=== PATIENT | male | born 1980 | race Caucasian/White ===

== ENCOUNTER 2024-04-13 19:53 | Emergency (ER) | payer MEDICAID, SELFPAY ==
[2024-04-13 19:54] VITALS: BP 141/117; PULSE 121; RESP 30; TEMP 36.8; O2SAT 97; BMI 25.3
[2024-04-13 20:51] VITALS: PULSE 84; RESP 18; O2SAT 95
[2024-04-13] MEDS: predniSONE 20 MG Tablet 40 MG PO (21:31)
[2024-04-13 22:00] VITALS: O2SAT 94
[2024-04-13 22:28] VITALS: BP 174/97; PULSE 88; RESP 18; TEMP 36.1; O2SAT 94
== END 2024-04-13 22:28 | disposition home or self-care (01) ==
PROVIDERS: Emergency Provider Emergency Medicine; Visit Provider Emergency Medicine
DX: J45.901 Unspecified asthma with (acute) exacerbation (principal); F17.210 Nicotine dependence, cigarettes, uncomplicated
CPT/HCPCS: 71046; 99282

== ENCOUNTER 2024-06-11 18:43 | Inpatient (IN) | payer MEDICAID, SELFPAY ==
[2024-06-11] VITALS (18 sets, daily range): BP systolic 147–198; BP diastolic 71–105; PULSE 95–139; RESP 13–22; TEMP 36.4–37.2; O2SAT 90–98; BMI 25.6
--- NOTE | 2024-06-11 18:58 | ED.VIS.DYS ---
HPI History of Present Illness Chief Complaint: Shortness of Breath Narrative Narrative: 44-year-old male past medical history of asthma, smoker of cigarettes, presents after just being discharged from the hospital today with increasing shortness of breath. He relates history that he was seen yesterday evening and admitted overnight for respiratory distress. He went home today, and when he got home he states he started having problems breathing. He used an albuterol MDI and tried the nebulizer but still had a lot of difficulty breathing. He states he does not smoke any cigarettes when he got home. Additionally, he states that they told him that he could go home this morning, but then may have suggested that he stay for more IV steroids and treatments. He states that he elected to go home, but since he had such difficulty at home, he is willing to stay if he gets readmitted. No new symptoms. [facility] Medical History Asthma Home Medications ?Medication ?Instructions ?Recorded ?Last Taken ?Type albuterol sulfate 90 mcg/actuation 1 puff inhalation Q4H PRN PRN 10/29/13 Unknown History aerosol inhaler (Ventolin HFA) Shortness Of Breath albuterol sulfate 90 mcg/actuation 1 - 2 puff inhalation Q4H PRN PRN 04/13/24 Unknown Rx aerosol inhaler (Ventolin HFA) Wheezing ##1 prednisone 20 mg tablet 40 mg (2 x 20 mg) PO DAILY 5 days 04/13/24 Unknown Rx #10 tabs ipratropium 0.5 mg-albuterol 3 mg 3 ml inhalation 06/11/24 Unknown History (2.5 mg base)/3 mL nebulization soln Allergy/AdvReac Type Severity Reaction Status Date / Time No Known Allergies Allergy Verified 06/11/24 18:43 Social History Smoking Status: Former smoker ROS ROS ED ROS Narrative Review of systems positive for occasional cough, increased difficulty breathing and wheezing. No fevers or chills. EXAM Physical Exam Narrative Exam Narrative: Afebrile. Vital signs noted. Nontoxic-appearing. Pulse ox 90% on room air upon arrival. Placed on 2 L nasal cannula oxygen. Cardiovascular examination reveals a tachycardia. There is wheezing and decreased air movement throughout the bilateral lung yost. Abdomen soft and nontender. Positive bowel sounds. Neurological examination nonfocal and nonlateralizing. Const Vital Signs: 06/11/24 18:43 06/11/24 19:04 06/11/24 19:06 Temperature 97.5 F L Temperature Source Oral Pulse Rate 139 H 121 H Respiratory Rate 22 H 22 H Respiratory Pattern Tachypnea Blood Pressure 198/102 H Blood Pressure Mean 134 Pulse Ox 90 92 Oxygen Delivery Method Room Air Nasal Cannula Oxygen Flow Rate (L/min) 2 06/11/24 19:10 06/11/24 19:10 06/11/24 19:28 Temperature 98.9 F Temperature Source Oral Pulse Rate 122 H 121 H Respiratory Rate 22 H 20 H Respiratory Pattern Blood Pressure 187/85 H Blood Pressure Mean 119 Pulse Ox 92 98 Oxygen Delivery Method Nasal Cannula Room Air Oxygen Flow Rate (L/min) 2 MDM MDM MDM Narrative Medical decision making narrative: I reviewed his prior visit. I also reviewed the discharge note from today, but it was under a different medical record number. He has been offered to stay an additional day, but it was noted that he was more adamant in being discharged. Patient had a CTA performed as well as laboratory work and chest x-ray. I do not feel that these need repeated because it has been within 24 hours that they were initially performed. He will be given a DuoNeb aerosolized treatment as well as methylprednisolone 125 mg intravenously. Smoking cessation was discussed. As he has bounced back, I will discuss patient with the hospitalist for admission. Patient discussed with Dr. Byers. Disposition is admit to the PCU in stable condition. History & Record Review Discussion w/independent historian: Patient Additional record(s) reviewed:: Prior inpatient record and Prior ED visit Management Discussion w/another healthcare provider: Hospitalist Discharge Plan Dx/Rx/DC Orders Clinical Impression: Asthma exacerbation, Wheezing, Dyspnea Disposition Disposition: Acute Care Hospital [facility]
[2024-06-11] MEDS: Ipratropium/Albuterol Sulfate 3 ML AMPUL.NEB INHALATION ×2 (19:04→23:52)
[2024-06-11] MEDS: MethylPREDNISolone 125 MG/2 ML Vial IV (19:06)
--- NOTE | 2024-06-11 19:32 | HP.PCM.HOS_ITS ---
HPI - General General Date of Admission: 06/11/24 Date of Service: 06/11/24 Chief Complaint: Shortness of breath with wheezing HPI Narrative TERRI LEGGETT, is a 44 M who presented to [facility] ED on 06/11/2024 with worsening shortness of breath with wheezing. Patient was discharged earlier in the afternoon, see discharge summary for further details. Was initially admitted for asthma exacerbation secondary to rhinovirus on 06/09. Patient states he went home and tried using his inhalers at home but they were not effective. States he became more short of breath and wheezy soon after arriving back at home. States he will be willing to stay longer in the hospital this time to ensure resolution of his symptoms. Satting well on room air in the ED but on auscultation remains diffusely wheezy. Does have good air movement throughout bilaterally. No other new concerns at this time. [facility] Medical History Asthma Home Medications ?Medication ?Instructions ?Recorded ?Last Taken ?Type albuterol sulfate 90 mcg/actuation 1 puff inhalation Q4H PRN PRN 10/29/13 U nknown History aerosol inhaler (Ventolin HFA) Shortness Of Breath albuterol sulfate 90 mcg/actuation 1 - 2 puff inhalation Q4H PRN PRN 04/13/24 Unknown Rx aerosol inhaler (Ventolin HFA) Wheezing ##1 prednisone 20 mg tablet 40 mg (2 x 20 mg) PO DAILY 5 days 04/13/24 Unknown Rx #10 tabs ipratropium 0.5 mg-albuterol 3 mg 3 ml inhalation 06/11/24 Unknown History (2.5 mg base)/3 mL nebulization soln Allergy/AdvReac Type Severity Reaction Status Date / Time No Known Allergies Allergy Verified 06/11/24 18:43 Social History Smoking Status: Former smoker ROS Constitutional Constitutional: Denies chills, fatigue, fever(s) or weakness Cardiovascular Cardiovascular: Denies chest pain Respiratory/Chest Respiratory/Chest: Reports shortness of breath at rest, shortness of breath with exertion and wheezing; Denies cough or productive cough Gastrointestinal Gastrointestinal: Reports abdominal pain Vital Signs Vital Signs Vital Signs: 06/11/24 18:43 06/11/24 19:04 06/11/24 19:06 Temperature 97.5 F L Temperature Source Oral Pulse Rate 139 H 121 H Respiratory Rate 22 H 22 H Respiratory Pattern Tachypnea Blood Pressure 198/102 H Blood Pressure Mean 134 Pulse Ox 90 92 Oxygen Delivery Method Room Air Nasal Cannula Oxygen Flow Rate (L/min) 2 06/11/24 19:10 06/11/24 19:10 06/11/24 19:28 Temperature 98.9 F Temperature Source Oral Pulse Rate 122 H 121 H Respiratory Rate 22 H 20 H Respiratory Pattern Blood Pressure 187/85 H Blood Pressure Mean 119 Pulse Ox 92 98 Oxygen Delivery Method Nasal Cannula Room Air Oxygen Flow Rate (L/min) 2 Weight Weight: 85.729 kg Body Mass Index (BMI) 25.6 Physical Exam Const alert, oriented x3 and no apparent distress Constitutional Narrative: Middle-age male, mildly fatigued and unkempt appearing, otherwise sitting up comfortably in bed, answering questions appropriately, in no acute distress. General Appearance: cooperative and comfortable HEENT normocephalic, head/scalp atraumatic, hearing grossly normal bilaterally and nasal mucous membranes and turbinates normal Eyes PERRL, EOMs intact bilaterally and conjunctivae normal Neck full ROM Chest inspection of chest normal Resp normal respiratory effort and no use of accessory muscles Resp Narrative: Breathing comfortably on room air at rest, no increased work of breathing noted. Mild to moderate diffuse wheezing noted bilaterally but otherwise good air movement throughout. No crackles noted. Cardio no murmurs and peripheral pulses 2+ throughout Cardio Narrative: Tachycardic, regular rhythm. GI normal to inspection, nondistended, normoactive bowel sounds, soft to palpation, non-tender and non-distended Back/Spine normal ROM Extremity normal to inspection, full ROM and no pedal edema Skin no rashes or lesions noted Psych mental status grossly normal Assessment & Plan Assessment/Plan (1) Asthma exacerbation: (2) Rhinovirus infection: PLAN: Plan Patient is a 44-year-old male who presented [facility] ED on 06/11/2024 with shortness of breath. 1. Asthma exacerbation secondary to rhinovirus infection ? Admit under inpatient status to PCU. 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 Found to be rhinovirus positive. Had good improvement with IV steroids and scheduled DuoNebs and was weaned off supplemental oxygen on 06/11. Patient requested discharge home on afternoon of 06/11 but had worsening symptoms shortly after arriving back home and came back in the evening. Not hypoxic but with mild to moderate diffuse wheezing noted. Will treat with IV steroids and scheduled DuoNebs for now. 2. Tobacco use disorder ? Smokes 1 pack of cigarettes per day. Discussed cessation. Denied need for nicotine replacement therapy while inpatient. DVT prophylaxis: Lovenox CODE STATUS: Full code, verified Expected disposition: Home, TBD Total clinical time spent by myself addressing the patient's medical issues, re viewing all the data, and collaborating with patient's care team: 55 minutes. Charges/Coding Visit Charges Inpatient E&M: 09132 Init Hosp L2
[2024-06-12] VITALS (12 sets, daily range): BP systolic 153–163; BP diastolic 79–89; PULSE 80–107; RESP 16–18; TEMP 35.7–36.8; O2SAT 92–98
[2024-06-12] MEDS: 0.9% Saline Lock 10 ML Syringe IV ×2 (06:38→21:13)
[2024-06-12] MEDS: Ipratropium/Albuterol Sulfate 3 ML AMPUL.NEB INHALATION ×3 (07:08→14:40)
[2024-06-12 07:16] LABS: Hematocrit 43.8 % (40-54); Hemoglobin 14.4 g/dL (13.0-16.5); Mean Corp Hgb Conc 32.9 g/dL (32-36); Mean Corpuscular Hgb 28.7 pg (27.0-32.0); Mean Corpuscular Volume 87.3 fL (80-94); Mean Platelet Vol. 9.5 fl (6.2-12.0); Platelet Count 261 K/mm3 (150-450); RBC Distribution Width CV 12.9 % (11.6-14.6); RBC Distribution Width SD 40.9 fl (35.1-43.9); Red Blood Count 5.02 M/mm3 (4.6-6.2); White Blood Count 16.8 K/mm3 (4.4-11.0)
[2024-06-12 07:45] LABS: Anion Gap 6 (5-15); BUN 15 mg/dL (7-18); BUN/Creat Ratio 17.6 RATIO (10-20); Chloride 108 mmol/L (98-107); Creatinine, Serum 0.85 mg/dL (0.70-1.30); EST Glomerular Filtration Rate 105 mL/min (>60); Est Glom Filt Rate - Afr Amer 126 mL/min (>60); Estimated Creatinine Clearance 124.26 ml/min; Glucose 131 mg/dL (74-106); Potassium 4.1 mmol/L (3.5-5.1); Sodium Level 140 mmol/L (136-145)
--- NOTE | 2024-06-12 07:58 | NURSING ---
during admission assessment, pt. refused to remove jeans and shoes for accurate weight and skin assessment despite this nurse having explained the importance of this. Pt. was provided with hospital pants to wear, but pt. refused. When i tried to reassess these later on in the shift, pt. still refused. Charge nurse made aware and both assessments were completed to as much as possible given pt.'s refusals to cooperate.
--- NOTE | 2024-06-12 08:10 | PCM.PN.HOSP ---
Reason for Visit Reason for Visit: Diagnoses Other viral infections of unspecified site (06/11/24) Unspecified asthma with (acute) exacerbation (06/11/24) Subjective Subjective Breathing improving with nebs and IV steroids, thinks that his respiratory status got worse when he got home because he is sometimes allergic to cats and there was cat smell in the house prompting him to return to the ED but that prior to getting home his respiratory status was stable Objective Data Objective Data Vital Signs: Vital Signs Temp Pulse Resp BP Pulse Ox O2 Del Method O2 Flow Rate 96.2 F L 81 18 160/86 H 98 Nasal Cannula 2 06/12/24 06:30 06/12/24 06:30 06/12/24 06:30 06/12/24 06:30 06/12/24 06:30 06/12/24 06:30 06/12/24 06:30 Oxygen Flow Rate (L/min) 2 Oxygen Delivery Method Nasal Cannula Weight: 85.729 kg Body Mass Index (BMI) 25.6 Intake & Output: Intake and Output for Last 24 Hours 06/10/24 06/11/24 06/12/24 23:59 23:59 23:59 Intake Total 600 / 600 Balance 600 / 600 Lab / Micro Data 06/12/24 06:38 06/12/24 06:38 Labs: Laboratory Results - last 24 hr 06/12/24 06:38: WBC 16.8 H, RBC 5.02, Hgb 14.4, Hct 43.8, MCV 87.3, MCH 28.7, MCHC 32.9, RDW Std Deviation 40.9, RDW Coeff of Kenan 12.9, Plt Count 261, MPV 9.5, Sodium 140, Potassium 4.1, Chloride 108 H, Carbon Dioxide 26.0, Anion Gap 6, BUN 15, Creatinine 0.85, Estim Creat Clear Calc 124.26, Est GFR (MDRD) Af Amer 126, Est GFR (MDRD) Non-Af 105, BUN/Creatinine Ratio 17.6, Glucose 131 H, Calcium 9.0 Physical Exam Narrative General: Alert, oriented, no apparent distress HEENT: Atraumatic, normocephalic Eyes: Anicteric, normal conjunctiva, extraocular movements grossly intact Neck: Supple Respiratory: Scattered wheezes, normal respiratory effort Cardiovascular: Regular rate and rhythm GI: Soft, nontender, nondistended Extremities: No edema Musculoskeletal: Moving all extremities Neuro: No overt focal neurological deficits Skin: No rashes appreciated Psych: Cooperative Assessment & Plan Assessment/Plan (1) Asthma exacerbation: (2) Rhinovirus infection: PLAN: Plan # Asthma exacerbation secondary to RSV -Had been admitted 06/10 early in the morning and stayed overnight receiving IV steroids and DuoNebs (records under a different V number for unclear reasons) -Patient wanted to leave 06/11, discussed discharge versus staying an additional day for IV steroids and DuoNebs and patient strongly preferred discharge home and given he was feeling much better and was able to ambulate without the need for O2 was felt it was reasonable to send him home with prednisone and DuoNebs however he reported increasing shortness of breath in the evening after discharge and came back to the hospital -Continue IV steroids and DuoNebs #Tobacco use -Advise cessation -Nicotine replacement available if desired #DVT ppx: Lovenox subcu Suyapa King MD Charges/Coding Visit Charges Inpatient E&M: 40569 Subs Hosp L1
[2024-06-12] MEDS: hydrOXYzine PAM 25 MG Capsule PO (17:49)
[2024-06-12] MEDS: Gabapentin 300 MG Capsule PO (21:14)
[2024-06-13 03:10] VITALS: BP 155/97; PULSE 68; RESP 16; TEMP 36.6; O2SAT 95
[2024-06-13] MEDS: 0.9% Saline Lock 10 ML Syringe IV (05:13)
[2024-06-13] MEDS: hydrOXYzine PAM 25 MG Capsule PO (05:17)
[2024-06-13 05:46] LABS: Absolute Lymphocyte Count 1.03 X10^3/uL (0.83-4.51); Absolute Neutrophil Count 13.8 X10^3/uL (2.0-7.7); Basophil# 0.02 X10^3/uL; Basophil% 0.1 % (0-1); Hematocrit 43.3 % (40-54); Hemoglobin 14.5 g/dL (13.0-16.5); Lymphocyte # 1.03 X10^3/ul (0.83-4.51); Lymphocyte % 6.5 % (19-41); Mean Corp Hgb Conc 33.5 g/dL (32-36); Mean Corpuscular Hgb 29.1 pg (27.0-32.0); Mean Corpuscular Volume 86.9 fL (80-94); Mean Platelet Vol. 9.3 fl (6.2-12.0); Monocyte# 0.94 X10^3/uL; Monocyte% 5.9 % (0-10); NRBC Flagged by Analyzer 0 % (0-5); Neutrophil # 13.76 X10^3/uL (2.7-7.7); Neutrophil % 86.7 % (47-70); Platelet Count 253 K/mm3 (150-450); RBC Distribution Width CV 12.7 % (11.6-14.6); RBC Distribution Width SD 40.1 fl (35.1-43.9); Red Blood Count 4.98 M/mm3 (4.6-6.2); White Blood Count 15.9 K/mm3 (4.4-11.0)
[2024-06-13 06:02] LABS: Anion Gap 4 (5-15); BUN 18 mg/dL (7-18); BUN/Creat Ratio 23.5 RATIO (10-20); Calcium,Total 8.9 mg/dL (8.5-10.1); Chloride 107 mmol/L (98-107); Creatinine, Serum 0.76 mg/dL (0.70-1.30); EST Glomerular Filtration Rate 119 mL/min (>60); Est Glom Filt Rate - Afr Amer 144 mL/min (>60); Estimated Creatinine Clearance 138.98 ml/min; Glucose 187 mg/dL (74-106); Potassium 3.8 mmol/L (3.5-5.1); Sodium Level 139 mmol/L (136-145)
[2024-06-13 07:16] VITALS: PULSE 97; RESP 18; O2SAT 95
[2024-06-13] MEDS: Ipratropium/Albuterol Sulfate 3 ML AMPUL.NEB INHALATION (07:16)
[2024-06-13 09:23] VITALS: BP 168/92; PULSE 89; RESP 16; TEMP 36.9; O2SAT 93
--- NOTE | 2024-06-13 12:12 | PCM.DC.SUM ---
Providers Date of Admission: 06/11/24 Date of Discharge: 06/13/24 Primary Care Physician: No Primary Care Phys Reason For Visit: RSV WITH ASTHMA EXACERBATION Diagnosis Discharge Diagnosis (1) Asthma exacerbation: Status: Acute Code(s): J45.901 - Unspecified asthma with (acute) exacerbation (2) Rhinovirus infection: Status: Acute Code(s): B34.8 - Other viral infections of unspecified site Plan # Asthma exacerbation secondary to RSV #Tobacco use Medications at Discharge Home Medications albuterol sulfate 90 mcg/actuation aerosol inhaler (Ventolin HFA) 1 puff inhalation Q4H PRN PRN Shortness Of Breath 10/29/13 albuterol sulfate 90 mcg/actuation aerosol inhaler (Ventolin HFA) 1 - 2 puff inhalation Q4H PRN PRN Wheezing ##1 04/13/24 prednisone 20 mg tablet 40 mg (2 x 20 mg) PO DAILY 5 days #10 tabs 04/13/24 ipratropium 0.5 mg-albuterol 3 mg (2.5 mg base)/3 mL nebulization soln 3 ml inhalation Q4H PRN sob 06/11/24 Hospital Course Summary of Care Provided Hospital Course: Per hpi: TERRI LEGGETT, is a 44 M who presented to [facility] ED on 06/11/2024 with worsening shortness of breath with wheezing. Patient was discharged earlier in the afternoon, see discharge summary for further details. Was initially admitted for asthma exacerbation secondary to rhinovirus on 06/09. Patient states he went home and tried using his inhalers at home but they were not effective. States he became more short of breath and wheezy soon after arriving back at home. States he will be willing to stay longer in the hospital this time to ensure resolution of his symptoms. Satting well on room air in the ED but on auscultation remains diffusely wheezy. Does have good air movement throughout bilaterally. No other new concerns at this time. INTERVAL HISTORY: Patient was on nebulizers and IV steroids and had been doing well on room air. Before patient could be evaluated 06/13/2024 to assess for discharge PATIENT LEFT AMA Weight / BMI Weight Weight: 85.729 kg Body Mass Index (BMI) 25.6 ABG / Lab / Microbiology Data 06/13/24 05:28 06/13/24 05:28 Laboratory: Laboratory Results - last 24 hr 06/13/24 05:28: WBC 15.9 H, RBC 4.98, Hgb 14.5, Hct 43.3, MCV 86.9, MCH 29.1, MCHC 33.5, RDW Std Deviation 40.1, RDW Coeff of Kenan 12.7, Plt Count 253, MPV 9.3, Immature Gran % (Auto) 0.800, Neut % (Auto) 86.7 H, Lymph % (Auto) 6.5 L, [place] % (Auto) 5.9, Eos % (Auto) 0.0, Baso % (Auto) 0.1, Absolute Neuts (auto) 13.8 H, Absolute Lymphs (auto) 1.03, Nucleated RBC % 0, Sodium 139, Potassium 3.8, Chloride 107, Carbon Dioxide 28.0, Anion Gap 4 L, BUN 18, Creatinine 0.76, Estim Creat Clear Calc 138.98, Est GFR (MDRD) Af Amer 144, Est GFR (MDRD) Non-Af 119, BUN/Creatinine Ratio 23.5 H, Glucose 187 H, Calcium 8.9 D/C Instructions DC O2, CPAP, BIPAP Needs Home O2 Discharge instructions: No Meaningful Use Info Meaningful Use Meaningful Use Diagnoses (Choose all that apply): None applicable Ischemic Stroke Statin Dosing Therapy Reference: STATIN DOSE THERAPY REFERENCE: * Patients > 75 years receive moderate or high dose statin therapy. * Patients 75 years or YOUNGER should receive HIGH intensity statin dose unless contraindicated. You will be required to document reason for non-treatment if statin daily dose does not meet guidelines. HIGH DOSE STATIN THERAPY DAILY Atorvastatin > than or = to 40 mg Rosuvastatin > than or = to 20 mg Amlodipine + Atorvastatin > than or = to 2.5/40 mg Ezetimibe + Simvastatin 10/80 mg Simvastatin 80mg Discharge Plan Admission Admit Date/Time: 06/11/24 19:32 Attending Provider: Suyapa King Primary Care Provider: Care Physician,No Primary Consulting Providers: Harrison Byers Discharge Orders/Prescriptions Prescriptions: No Action albuterol sulfate [Ventolin HFA] 1 INHALER inhaler 1 puff inhalation Q4H PRN PRN (Reason: Shortness Of Breath) prednisone 20 mg tablet 40 mg PO DAILY 5 Days Qty: 10 0RF albuterol sulfate [Ventolin HFA] 90 mcg/actuation HFA aerosol inhaler 1 - 2 puff inhalation Q4H PRN PRN (Reason: Wheezing) Qty: 1 0RF ipratropium-albuterol 0.5 mg-3 mg(2.5 mg base)/3 mL solution for nebulization 3 ml inhalation Q4H PRN (Reason: sob) Referrals / Follow Up: Care Physician,No Primary [Primary Care Provider] - Disposition Disposition (needs filled in before D/C Order can be placed): Home, Self Care
== END 2024-06-13 11:22 | disposition home or self-care (01) | DRG 141 ==
LOC: ED 20:20 → PCU 22:42
PROVIDERS: Admitting Provider Hospitalist; Emergency Provider Emergency Medicine; Referring Provider Hospitalist; Visit Provider Internal Medicine
DX: J45.901 Unspecified asthma with (acute) exacerbation (principal); B97.4 Respiratory syncytial virus as the cause of diseases classified elsewhere; F17.210 Nicotine dependence, cigarettes, uncomplicated; Z79.51 Long term (current) use of inhaled steroids; Z79.52 Long term (current) use of systemic steroids; W55.89XA Other contact with other mammals, initial encounter
CPT/HCPCS: 36415; 80048; 85025; 85027; 94640; 94668; 99285; A4216

== ENCOUNTER 2024-07-10 15:25 | Emergency (ER) | payer OTHER, MEDICAID, SELFPAY ==
[2024-07-10 15:25] VITALS: BP 192/107; PULSE 97; RESP 20; TEMP 35.1; O2SAT 97; BMI 27.4
--- NOTE | 2024-07-10 16:10 | RAD_ITS ---
PROCEDURE: CHEST 1 VIEW (PORTABLE) REASON FOR EXAM: Cough TECHNIQUE: Frontal view of the chest. COMPARISON: Yesterday FINDINGS: The heart size is normal. The lungs are clear. RAD/Chest 1 View (Portable) IMPRESSION: NEGATIVE CHEST. Reading Location: [facility]
--- NOTE | 2024-07-10 16:10 | EDS_ITS ---
HPI History of Present Illness Chief Complaint: Shortness of Breath Narrative Narrative: 44-year-old male past medical history of asthma, smoker, presents with asthma exacerbation that he has had for the last day. He states yesterday he thought he had it under control. Today, he presents with increasing dyspnea to the point where he has used up his albuterol inhaler. He has nebulizer treatments at home that are ineffective. He has not been on steroids since he was admitted last month. He is only smoked a pack and a half of cigarettes since his discharge over the last few weeks. He denies any fevers or chills. He has occasional cough. Denies any other exacerbating or alleviating factors to his shortness of breath. [facility] Medical History Asthma Smoker Asthma Home Medications ?Medication ?Instructions ?Recorded ?Last Taken ?Type albuterol sulfate 90 mcg/actuation 1 puff inhalation Q 4H PRN PRN 10/29/13 Unknown History aerosol inhaler (Ventolin HFA) Shortness Of Breath albuterol sulfate 90 mcg/actuation 1 - 2 puff inhalati on Q4H PRN PRN 04/13/24 Unknown Rx aerosol inhaler (Ventolin HFA) Wheezing ##1 prednisone 20 mg tablet 40 mg (2 x 20 mg) PO DAILY 5 days 04/13/24 Unknown Rx #10 tabs albuterol sulfate 90 mcg/actuation See Rx Instructions .Route 06/11/24 Unknown Rx aerosol inhaler .COMPLEX PRN shortness of br eath or wheezing #8.5 grams ipratropium 0.5 mg-albuterol 3 mg 3 ml inhalation Q4H PRN sob 06/11/24 Unknown History (2.5 mg base)/3 mL nebulization soln ipratropium 0.5 mg-albuterol 3 mg 3 ml inhalation Q6H #180 mL 06/11/24 Unknown Rx (2.5 mg base)/3 mL nebulization soln prednisone 20 mg tablet See Taper PO BREAKFAST #32 t abs 06/11/24 Unknown Rx albuterol sulfate 90 mcg/actuation 2 puff inhalation Q 4H PRN PRN 07/10/24 Unknown Rx aerosol inhaler (Ventolin HFA) Wheezing #1 ea prednisone 20 mg tablet 40 mg (2 x 20 mg) PO DAILY 7 days 07/10/24 Unknown Rx #14 tabs Allergy/AdvReac Type Severity Reaction Status Date / Time No Known Allergies Allergy Verified 07/10/24 15:27 Social History Smoking Status: Current every day smoker tobacco type: cigarettes and cigars ROS ROS ED ROS Narrative Constitutional: No fever, no chills. HEENT: No sore throat. No neck pain. No loss of vision. No rhinorrhea. Cardiovascular: No chest pain. No palpitations. No pedal edema. Respiratory: Occasional cough, increasing shortness of breath. Abdominal: No abdominal pain. No nausea. No vomiting. EXAM Physical Exam Narrative Exam Narrative: Afebrile. Vital signs noted. Nontoxic-appearing. No acute distress. Looking at phone upon entering room. HEENT examination grossly unremarkable. No strido r. Cardiovascular examination reveals a regular rate and rhythm. Respiratory examination shows mild tachypnea with no accessory muscle use. Diffuse wheezing throughout bilateral lung yost. Moving a good amount of air. Able to speak in full sentences. No pedal edema. Neurological examination awake, alert, nonfocal, nonlateralizing. Const Vital Signs: 07/10/24 15:25 07/10/24 16:25 07/10/24 16:34 Temperature 95.2 F L Temperature Source Temporal Pulse Rate 97 85 Respiratory Rate 20 H 20 H Respiratory Effort Short of Breath Respiratory Pattern Tachypnea Blood Pressure 192/107 H Blood Pressure Mean 135 Pulse Ox 97 Oxygen Delivery Method Room Air Room Air 07/10/24 17:25 Temperature Temperature Source Pulse Rate 85 Respiratory Rate 14 Respiratory Effort Respiratory Pattern Blood Pressure Blood Pressure Mean Pulse Ox 98 Oxygen Delivery Method Room Air MDM MDM MDM Narrative Medical decision making narrative: Differential diagnosis includes but not limited to asthma exacerbation versus pneumonia versus pneumothorax versus bronchitis. I reviewed his prior ED visits, and he had been admitted to the hospital on June 10, then discharged. He had returned when I had seen him last and he was readmitted. He states he stayed for 2 days. I do feel that he is probably having more of an asthma exacerbation. He states that he had a rhinovirus infection previously. He is not febrile so I do not feel he needs respiratory swabs. Smoking cessation was discussed. He was given a DuoNeb aerosolized treatment and a loading dose of prednisone 60 mg orally. Chest x-ray in 1 view obtained and interpreted by myself independently. There is no evidence of an acute process on my indepen dent interpretation, no pneumonia, no pneumothorax. I reviewed the radiology report which confirms my independent interpretation. Repeat examination at approximately 1750 shows him resting comfortably on the cot, sitting upright. His wheezing is improved. Pulse ox is 97 to 98% on room air. At this point in time, he states he has enough nebulizer treatments at home, he has a whole box. I wrote him for a new inhaler and will start him on a prednisone burst of 40 mg for the next week which she can start tomorrow. He has a normal, nonhypoxic ambulatory pulse ox. Return instructions to the emergency department reviewed. Disposition is discharged home in stable condition. History & Record Review Discussion w/independent historian: Patient Additional record(s) reviewed:: Prior ED visit Radiography Chest X-Ray - ED: Read by ED Physician and Read by Radiologist Diagnostic Testing: Clinical Impression(s) from Imaging Studies Chest X-Ray 07/10/24 16:10 IMPRESSION: NEGATIVE CHEST. Reading Location: [facility] Discharge Plan Triage Chief Complaint: Shortness of Breath ED Provider: Lopez Tracy Dx/Rx/DC Orders Clinical Impression: Tobacco abuse, Asthma exacerbation Instructions: ED Asthma, Acute (Adult), ED MDI Use Spacer or None, ED How to Quit Smoking Prescriptions: New albuterol sulfate [Ventolin HFA] 90 mcg/actuation HFA aerosol inhaler 2 puff inhalation Q4H PRN PRN (Reason: Wheezing) Qty: 1 0RF prednisone 20 mg tablet 40 mg PO DAILY 7 Days Qty: 14 0RF No Action albuterol sulfate [Ventolin HFA] 1 INHALER inhaler 1 puff inhalation Q4H PRN PRN (Reason: Shortness Of Breath) prednisone 20 mg tablet 40 mg PO DAILY 5 Days Qty: 10 0RF albuterol sulfate [Ventolin HFA] 90 mcg/actuation HFA aerosol inhaler 1 - 2 puff inhalation Q4H PRN PRN (Reason: Wheezing) Qty: 1 0RF ipratropium-albuterol 0.5 mg-3 mg(2.5 mg base)/3 mL Solution For Nebulization 3 ml inhalation Q6H Qty: 180 0RF prednisone 20 mg Tablet See Taper PO BREAKFAST Qty: 32 0RF Taper: Prednisone Taper 60 mg WITH BREAKFAST for 3 Days and 0 Hour 50 mg WITH BREAKFAST for 3 Days and 0 Hour 40 mg WITH BREAKFAST for 3 Days and 0 Hour 30 mg WITH BREAKFAST for 3 Days and 0 Hour 20 mg WITH BREAKFAST for 3 Days and 0 Hour 10 mg WITH BREAKFAST for 3 Days and 0 Hour albuterol sulfate 90 mcg/actuation HFA aerosol inhaler See Rx Instructions .ROUTE .COMPLEX PRN (Reason: shortness of breath or wheezing) Qty: 8.5 0RF Rx Instructions: 1-2 puffs every 4-6 hours as needed for shortness of breath or wheezing ipratropium-albuterol 0.5 mg-3 mg(2.5 mg base)/3 mL solution for nebulization 3 ml inhalation Q4H PRN (Reason: sob) Primary Care Provider: Care Physician,No Primary Referrals: Du Ortiz MD [Med Staff - Active Staff] - 3-5 Days if not improving Care Physician,No Primary [Primary Care Provider] - Activity Restrictions/Additional Instructions: Stop smoking. Return with increased difficulty breathing, new or worsening symptoms. Use the albuterol MDI/puffer 2 puffs inhaled every 4-6 hours as needed for shortness of breath. Take all of the prednisone burst as directed. Start prednisone tomorrow as you were given a loading dose in the emergency department today. Print Language: Kiswahili Disposition Disposition: Home, Self Care Discharge Date/Time: 07/10/24 18:06
[2024-07-10] MEDS: predniSONE 20 MG Tablet 60 MG PO (16:13)
[2024-07-10 16:25] VITALS: O2SAT 97
[2024-07-10] MEDS: Ipratropium/Albuterol Sulfate 3 ML AMPUL.NEB INHALATION (16:33)
[2024-07-10 16:34] VITALS: PULSE 85; RESP 20
[2024-07-10 17:25] VITALS: PULSE 85; RESP 14; O2SAT 98
[2024-07-10 17:44] VITALS: O2SAT 95
== END 2024-07-10 18:06 | disposition home or self-care (01) ==
PROVIDERS: Emergency Provider Emergency Medicine; Visit Provider Emergency Medicine
DX: J45.901 Unspecified asthma with (acute) exacerbation (principal); F17.210 Nicotine dependence, cigarettes, uncomplicated; F17.290 Nicotine dependence, other tobacco product, uncomplicated
CPT/HCPCS: 71045; 94640; 99283

== ENCOUNTER 2024-09-10 15:18 | Emergency (ER) | payer MEDICAID, SELFPAY ==
[2024-09-10 15:19] VITALS: BP 167/95; PULSE 98; RESP 30; TEMP 37.1; O2SAT 93; BMI 27.0
--- NOTE | 2024-09-10 15:35 | EKG12_ITS ---
Test Reason : SOB Blood Pressure : */* mmHG Vent. Rate : 94 BPM Atrial Rate : 94 BPM P-R Int : 136 ms QRS Dur : 106 ms QT Int : 386 ms P-R-T Axes : 62 70 56 degrees QTcB Int : 482 ms Normal sinus rhythm Minor ST changes Borderline Confirmed by Meng Chua ([id number]), editor city CHIKIS ALEXANDER ([id number]) on 09/13/2024 6:54:02 AM Referred By: Confirmed By: Meng Chua
--- NOTE | 2024-09-10 15:48 | RAD_ITS ---
PROCEDURE: CHEST 1 VIEW (PORTABLE) 09/10/2024 REASON FOR EXAM: DYSPNEA TECHNIQUE: Frontal view of the chest. COMPARISON: 07/10/2024 FINDINGS: Hardware: None Heart: Cardiac and mediastinal contours are stable. Lungs: No focal consolidation. No pneumothorax. No pleural effusion. Bones: The bones are unremarkable. Other: RAD/Chest 1 View (Portable) IMPRESSION: No Acute Findings. Reading Location: [facility]
--- NOTE | 2024-09-10 15:49 | ED.VIS.DYS ---
HPI History of Present Illness Chief Complaint: Shortness of Breath Detail of Chief Complaint: Shortness of breath Informant: patient Narrative Narrative: Patient presents with shortness of breath that started yesterday. Patient states that he used an entire inhaler throughout the night last night. He has history of asthma and gets frequent exacerbations. He has a smoker but has not smoked in 2 days. Denies recent travel or surgery. Denies chest pain. Cough nonproductive. Denies sick contacts. He states his girlfriend recently had a sinus infection. [facility] Medical History Asthma Smoker Asthma Home Medications ?Medication ?Instructions ?Recorded ?Last Taken ?Type albuterol sulfate 90 mcg/actuation 1 puff inhalation Q4H PRN PRN 10/29/13 Unknown History aerosol inhaler (Ventolin HFA) Shortness Of Breath albuterol sulfate 90 mcg/actuation 1 - 2 puff inhalation Q4H PRN PRN 04/13/24 Unknown Rx aerosol inhaler (Ventolin HFA) Wheezing ##1 prednisone 20 mg tablet 40 mg (2 x 20 mg) PO DAILY 5 days 04/13/24 Unknown Rx #10 tabs albuterol sulfate 90 mcg/actuation See Rx Instructions .Route 06/11/24 Unknown Rx aerosol inhaler .COMPLEX PRN shortness of breath or wheezing #8.5 grams ipratropium 0.5 mg-albuterol 3 mg 3 ml inhalation Q4H PRN sob 06/11/24 Unknown History (2.5 mg base)/3 mL nebulization soln ipratropium 0.5 mg-albuterol 3 mg 3 ml inhalation Q6H #180 mL 06/11/24 Unknown Rx (2.5 mg base)/3 mL nebulization soln prednisone 20 mg tablet See Taper PO BREAKFAST #32 tabs 06/11/24 Unknown Rx albuterol sulfate 90 mcg/actuation 2 puff inhalation Q4H PRN PRN 07/10/24 Unknown Rx aerosol inhaler (Ventolin HFA) Wheezing #1 ea prednisone 20 mg tablet 40 mg (2 x 20 mg) PO DAILY 7 days 07/10/24 Unknown Rx #14 tabs albuterol 90 mcg-budesonide 80 2 inh inhalation DAILY PRN 09/10/24 Unknown Rx mcg/actuation HFA aerosol inhaler shortness of breath #5.9 grams (Airsupra) prednisone 20 mg tablet 20 mg PO BID #10 tabs 09/10/24 Unknown Rx Allergy/AdvReac Type Severity Reaction Status Date / Time No Known Allergies Allergy Verified 09/10/24 15:20 Social History (Updated 09/10/24 @ 17:14 by Gisselle Lew) housing: apartment Smoking Status: Current every day smoker tobacco type: cigarettes and cigars ROS ROS ED Review of Systems ROS Unobtainable: other Constitutional Constitutional ED: Reports lethargy; Denies chills, fever(s), sweats or weight loss Eyes Eyes: Denies blurry vision, change in vision or diplopia ENT ENT ED: Denies rhinorrhea or sore throat Cardiovascular Cardiovascular: Denies chest pain, orthopnea or racing heartbeat Respiratory/Chest Respiratory/Chest: Reports cough, dyspnea and dyspnea on exertion; Denies orthopnea or sputum Gastrointestinal Gastrointestinal: Denies abdominal pain, diarrhea, nausea or vomiting Genitourinary Genitourinary ED: Denies dysuria, hematuria or urinary frequency Musculoskeletal Musculoskeletal: Denies arthralgias, back pain, myalgias or neck pain Integumentary Denies abscess, Abrasions or rash Neurologic Neurologic: Denies headache(s) or weakness Psychiatric Psychiatric: Denies anxiety, depression or suicidal thoughts Endocrine Endocrinology: Denies polydipsia, polyphagia or polyuria Hematologic/Lymphatic Hematologic/Lymphatic: Denies easy bleeding, easy bruising or lymphadenopathy Allergic/Immunologic Allergic/Immunologic ED: Denies mouth swelling, tongue swelling or urticaria EXAM Physical Exam Const Vital Signs: 09/10/24 15:19 09/10/24 16:03 09/10/24 16:19 Temperature 98.7 F Temperature Source Oral Pulse Rate 98 85 81 Respiratory Rate 30 H 16 15 Respiratory Effort Respiratory Depth Respiratory Pattern Normal Blood Pressure 167/95 H 159/105 H Blood Pressure Mean 119 123 Pulse Ox 93 95 Oxygen Delivery Method Room Air Room Air 09/10/24 17:00 09/10/24 17:13 09/10/24 17:13 Temperature Temperature Source Pulse Rate 85 Respiratory Rate 15 Respiratory Effort Short of Breath Labored Respiratory Depth Normal Respiratory Pattern Normal Blood Pressure 168/84 H Blood Pressure Mean 112 Pulse Ox 97 98 Oxygen Delivery Method Room Air Room Air Room Air Positive well nourished and well developed General Appearance ED: well developed and NAD HEENT Reports TM's clear and moist mucous membranes normocephalic and atraumatic; Negative for trauma or tenderness Tympanic Membrane ED: Yes TM's clear Eyes PERRL and EOMs intact bilaterally General Eye ED: Negative for pale conjunctiva or scleral icterus Neck no lymphadenopathy, supple and no JVD General: Negative for tenderness Chest Wall inspection of chest normal and palpation of chest normal Chest: Negative for tenderness Resp No normal respiratory effort and No clear to auscultation bilaterally Resp Narrative: Patient with some mild tachypnea and some mild conversational dyspnea. He has diminished breath sounds bilaterally with expiratory wheezes. No accessory muscle use or retractions. Effort and Inspection: Negative for respiratory distress or pain with movement Auscultation: Negative for rhonchi, wheezes or diminished lung sounds Cardio regular rate, regular rhythm, S1 normal heart sound, S2 normal heart sound and no murmurs Peripheral Pulses: pulses 2+ throughout GI normal to inspection, nondistended, normoactive bowel sounds, soft to palpation, non-tender, non-distended and no masses Back/Spine no CVA tenderness and no thoracic nor lumbar tenderness Extremity normal to inspection General Extremety ED: Negative for edema General Extremity: Negative for edema Neuro oriented x3, CN's II-XII intact bilaterally, no sensory deficits noted and gait normal Sensorium / Orientation: awake, alert, oriented to person, oriented to place and oriented to time Motor Exam: strength 5/5 throughout and strength abnormal Psych mental status grossly normal Skin no rashes or lesions noted and no wounds MDM MDM MDM Narrative Medical decision making narrative: Patient presents with asthma exacerbation and cough. Wheezing and diminished sounds and mild tachypnea. He was given DuoNeb aerosol as well as albuterol aerosols. He was started on Solu-Medrol IV. Will do chest x-ray was unremarkable. COVID flu and RSV testing was negative. At this point we discharged to home with diagnosis of acute exacerbation of asthma. He will be started on prednisone. He will be dispensed an albuterol MDI. Advised to follow-up with primary care physician on-call for no doc within the 3 to 5 days. Vies to return if increasing shortness of breath or condition should worsen anyway. Lab Data Attestation: I reviewed the patient's lab results. Radiography Diagnostic Testing: Clinical Impression(s) from Imaging Studies Chest X-Ray 04/11/25 15:48 IMPRESSION: No Acute Findings. [facility] chest x-ray interpreted by myself no evidence of infiltrate or pneumothorax or acute disease process. Radiology in agreement EKG Initial EKG: Attestation: I personally reviewed and interpreted this EKG as follows: Comments: Sinus rhythm with left bundle branch block and prolonged QT of 386. Discharge Plan Triage Chief Complaint: Shortness of Breath ED Provider: Marco Bhandari Dx/Rx/DC Orders Clinical Impression: Asthma exacerbation Instructions: Asthma Dx Prescriptions: New Airsupra 90-80 mcg/actuation HFA aerosol inhaler 2 inh inhalation DAILY PRN (Reason: shortness of breath) Qty: 5.9 0RF prednisone 20 mg tablet 20 mg PO BID Qty: 10 0RF No Action albuterol sulfate [Ventolin HFA] 1 INHALER inhaler 1 puff inhalation Q4H PRN PRN (Reason: Shortness Of Breath) prednisone 20 mg tablet 40 mg PO DAILY 5 Days Qty: 10 0RF albuterol sulfate [Ventolin HFA] 90 mcg/actuation HFA aerosol inhaler 1 - 2 puff inhalation Q4H PRN PRN (Reason: Wheezing) Qty: 1 0RF ipratropium-albuterol 0.5 mg-3 mg(2.5 mg base)/3 mL Solution For Nebulization 3 ml inhalation Q6H Qty: 180 0RF prednisone 20 mg Tablet See Taper PO BREAKFAST Qty: 32 0RF Taper: Prednisone Taper 60 mg WITH BREAKFAST for 3 Days and 0 Hour 50 mg WITH BREAKFAST for 3 Days and 0 Hour 40 mg WITH BREAKFAST for 3 Days and 0 Hour 30 mg WITH BREAKFAST for 3 Days and 0 Hour 20 mg WITH BREAKFAST for 3 Days and 0 Hour 10 mg WITH BREAKFAST for 3 Days and 0 Hour albuterol sulfate 90 mcg/actuation HFA aerosol inhaler See Rx Instructions .ROUTE .COMPLEX PRN (Reason: shortness of breath or wheezing) Qty: 8.5 0RF Rx Instructions: 1-2 puffs every 4-6 hours as needed for shortness of breath or wheezing ipratropium-albuterol 0.5 mg-3 mg(2.5 mg base)/3 mL solution for nebulization 3 ml inhalation Q4H PRN (Reason: sob) albuterol sulfate [Ventolin HFA] 90 mcg/actuation HFA aerosol inhaler 2 puff inhalation Q4H PRN PRN (Reason: Wheezing) Qty: 1 0RF prednisone 20 mg tablet 40 mg PO DAILY 7 Days Qty: 14 0RF Primary Care Provider: Care Physician,No Primary Referrals: Du Ortiz MD [Med Staff - Active Staff] - 3-5 Days Care Physician,No Primary [Primary Care Provider] - Print Language: Uruguayan Disposition Disposition: Home, Self Care
[2024-09-10] MEDS: Albuterol 2.5 MG/3 ML VIAL.NEB. INHALATION ×3 (16:02)
[2024-09-10] MEDS: Ipratropium/Albuterol Sulfate 3 ML AMPUL.NEB INHALATION (16:02)
[2024-09-10 16:03] VITALS: PULSE 85; RESP 16
[2024-09-10] MEDS: MethylPREDNISolone 125 MG/2 ML Vial IV (16:09)
[2024-09-10 16:19] VITALS: BP 159/105; PULSE 81; RESP 15; O2SAT 95
[2024-09-10 17:00] VITALS: BP 168/84; PULSE 85; RESP 15; O2SAT 97
[2024-09-10 17:13] VITALS: O2SAT 98
== END 2024-09-10 17:38 | disposition home or self-care (01) ==
PROVIDERS: Emergency Provider Emergency Medicine; Visit Provider Emergency Medicine
DX: J45.901 Unspecified asthma with (acute) exacerbation (principal); F17.210 Nicotine dependence, cigarettes, uncomplicated; F17.290 Nicotine dependence, other tobacco product, uncomplicated; Z79.51 Long term (current) use of inhaled steroids; Z79.52 Long term (current) use of systemic steroids
CPT/HCPCS: 71045; 87631; 93005; 94640; 99282

== ENCOUNTER 2025-04-01 01:22 | Emergency (ER) | payer MEDICAID, SELFPAY ==
[2025-04-01 01:22] VITALS: BP 189/112; PULSE 106; RESP 29; TEMP 36.6; O2SAT 95; BMI 27.2
--- NOTE | 2025-04-01 01:36 | ED.VIS.DYS ---
HPI History of Present Illness Chief Complaint: Shortness of Breath Informant: patient Narrative Narrative: 44-year-old male with a history of asthma and tobacco use presenting to the emergency room with dyspnea. Patient states over the past couple days he has been increasingly short of breath with wheezing. He notes a cough with occasional sputum production. No fevers or myalgias. He states he was hospitalized earlier this year for his asthma. At that time he had a rhinovirus infection. He does not wear oxygen. He smokes about a half a pack per day. [facility] Medical History Asthma Smoker Asthma Home Medications ?Medication ?Instructions ?Recorded ?Last Taken ?Type albuterol sulfate 90 mcg/actuation 1 - 2 puff inhalation Q4H PRN PRN 04/13/24 Unknown Rx aerosol inhaler (Ventolin HFA) Wheezing ##1 albuterol sulfate 90 mcg/actuation See Rx Instructions .Route 06/11/24 Unknown Rx aerosol inhaler .COMPLEX PRN shortness of breath or wheezing #8.5 grams ipratropium 0.5 mg-albuterol 3 mg 3 ml inhalation Q4H PRN sob 06/11/24 Unknown History (2.5 mg base)/3 mL nebulization soln ipratropium 0.5 mg-albuterol 3 mg 3 ml inhalation Q20M PRN shortness 04/01/25 Unknown Rx (2.5 mg base)/3 mL nebulization of breath or wheezing #90 mL soln prednisone 20 mg tablet See Rx Instructions .Route 04/01/25 Unknown Rx .COMPLEX #24 tabs Allergy/AdvReac Type Severity Reaction Status Date / Time No Known Allergies Allergy Verified 04/01/25 01:22 Social History housing: apartment Smoking Status: Current every day smoker tobacco type: cigarettes and cigars ROS ROS ED Constitutional Constitutional ED: Denies chills, fever(s) or weight loss Eyes Eyes: Denies change in vision or diplopia ENT ENT ED: Reports rhinorrhea; Denies ear pain or sore throat Cardiovascular Cardiovascular: Denies chest pain, orthopnea, palpitations or racing heartbeat Respiratory/Chest Respiratory/Chest: Reports cough, dyspnea, dyspnea on exertion and sputum; Denies orthopnea Gastrointestinal Gastrointestinal: Denies abdominal pain, diarrhea, nausea or vomiting Genitourinary Genitourinary ED: Denies dysuria, hematuria or urinary frequency Musculoskeletal Musculoskeletal: Denies arthralgias or myalgias Integumentary Denies abscess or rash Neurologic Neurologic: Denies headache(s) or weakness Psychiatric Psychiatric: Denies anxiety, depression, suicidal ideation or suicidal thoughts Endocrine Endocrinology: Denies polydipsia, polyphagia or polyuria Allergic/Immunologic Allergic/Immunologic ED: Denies mouth swelling, tongue swelling or urticaria EXAM Physical Exam Const Vital Signs: 04/01/25 01:22 04/01/25 01:22 04/01/25 01:38 Temperature 97.8 F Temperature Source Oral Pulse Rate 106 H 87 Respiratory Rate 29 H 16 Respiratory Effort Short of Breath Respiratory Depth Deep Respiratory Pattern Tachypnea Normal Blood Pressure 189/112 H Blood Pressure Mean 137 Pulse Ox 95 Oxygen Delivery Method Room Air Room Air 04/01/25 02:22 Temperature Temperature Source Pulse Rate 98 Respiratory Rate 19 H Respiratory Effort Respiratory Depth Respiratory Pattern Blood Pressure 166/100 H Blood Pressure Mean 122 Pulse Ox 96 Oxygen Delivery Method Room Air Positive well nourished and well developed General Appearance ED: well developed HEENT Reports normocephalic, head/scalp atraumatic and moist mucous membranes Eyes PERRL and EOMs intact bilaterally Neck no lymphadenopathy, supple and no JVD Resp Resp Narrative: Patient has conversational dyspnea. He has significant expiratory wheezing. Scattered rhonchi is noted. Auscultation: rhonchi and wheezes expiratory wheezes Cardio regular rate, regular rhythm and no murmurs Rate: tachycardic GI normal to inspection, nondistended, normoactive bowel sounds and non-tender Palpation: soft Back/Spine no CVA tenderness and normal ROM Extremity normal to inspection General Extremety ED: Negative for edema General Extremity: Negative for edema Neuro oriented x3 and CN's II-XII intact bilaterally Sensorium / Orientation: alert Motor Exam: strength 5/5 throughout Psych mental status grossly normal Mood & Affect: Negative for depressed or tearful Skin no rashes or lesions noted and no wounds MDM MDM MDM Narrative Medical decision making narrative: Differential diagnosis includes asthma exacerbation COPD/asthma overlap pleural effusion pneumonia bronchitis viral syndrome pneumothorax Plan of interpretation of the chest x-ray is no acute process. Please see radiologist read. White count 9.3 hemoglobin 16.3. BMP with a glucose of 105. Patient received prednisone as well as 2 albuterol's. He has significantly improved aeration. Not requiring supplemental oxygen and appears much more comfortable as his work of breathing is less. Patient tells me that he uses his albuterol MDI nightly. He does have a nebulizer at home but needs solution. He is interested in visiting with a equipment sales specialist to get better control of his asthma. History & Record Review Discussion w/independent historian: Patient Additional record(s) reviewed:: Prior inpatient record and Prior ED visit Lab Data Attestation: I reviewed the patient's lab results. Labs: Laboratory Results - last 24 hr 04/01/25 01:34 WBC 9.3 RBC 5.64 Hgb 16.3 Hct 49.5 MCV 87.8 MCH 28.9 MCHC 32.9 RDW Std Deviation 38.6 RDW Coeff of Kenan 12.0 Plt Count 218 MPV 9.4 Immature Gran % (Auto) 0.300 Neut % (Auto) 53.3 Lymph % (Auto) 33.4 Edmonson % (Auto) 8.4 Eos % (Auto) 4.1 Baso % (Auto) 0.5 Absolute Neuts (auto) 5.0 Absolute Lymphs (auto) 3.11 Nucleated RBC % 0 Sodium 139 Potassium 4.2 Chloride 104 Carbon Dioxide 24.3 Anion Gap 10 BUN 18 Creatinine 0.91 Estim Creat Clear Calc 116.07 Est GFR (MDRD) Non-Af 108 BUN/Creatinine Ratio 19.8 Glucose 105 H Calcium 9.2 Radiography Diagnostic Testing: Clinical Impression(s) from Imaging Studies Chest X-Ray 04/01/25 01:55 IMPRESSION: Mild pulmonary vascular congestion. No focal consolidation. Reading Location: [facility] Discharge Plan Triage Chief Complaint: Shortness of Breath ED Provider: Vishnu Alvarado Dx/Rx/DC Orders Clinical Impression: Asthma exacerbation, Dyspnea Instructions: Asthma Prescriptions: New prednisone 20 mg tablet See Rx Instructions .ROUTE .COMPLEX Qty: 24 0RF Rx Instructions: 3 tabs p.o. daily x 4 days then 2 tabs p.o. daily x 4 days then 1 tab p.o. daily x 4 days ipratropium-albuterol 0.5 mg-3 mg(2.5 mg base)/3 mL solution for nebulization 3 ml inhalation Q20M PRN (Reason: shortness of breath or wheezing) Qty: 90 0RF Rx Instructions: for 3 doses No Action albuterol sulfate [Ventolin HFA] 90 mcg/actuation HFA aerosol inhaler 1 - 2 puff inhalation Q4H PRN PRN (Reason: Wheezing) Qty: 1 0RF albuterol sulfate 90 mcg/actuation HFA aerosol inhaler See Rx Instructions .ROUTE .COMPLEX PRN (Reason: shortness of breath or wheezing) Qty: 8.5 0RF Rx Instructions: 1-2 puffs every 4-6 hours as needed for shortness of breath or wheezing ipratropium-albuterol 0.5 mg-3 mg(2.5 mg base)/3 mL solution for nebulization 3 ml inhalation Q4H PRN (Reason: sob) Primary Care Provider: Care Physician,No Primary Referrals: Jose Hernandez DO [Med Staff - Active Staff, Pulmonary Medicine] - As soon as possible Referral Note: for lung specialist Care Physician,No Primary [Primary Care Provider, Medical] Print Language: Albanian Disposition Disposition: Home, Self Care
[2025-04-01 01:38] VITALS: PULSE 87; RESP 16
[2025-04-01 01:43] LABS: Hematocrit 49.5 % (40-54); Hemoglobin 16.3 g/dL (13.0-16.5); Immature Granulocytes Count 0.030 X10^3/uL (0.0-0.0); Mean Corp Hgb Conc 32.9 g/dL (32-36); Mean Corpuscular Volume 87.8 fL (80-94); Mean Platelet Vol. 9.4 fl (6.2-12.0); NRBC Flagged by Analyzer 0 % (0-5); Platelet Count 218 K/mm3 (150-450); RBC Distribution Width CV 12.0 % (11.6-14.6); RBC Distribution Width SD 38.6 fl (35.1-43.9); Red Blood Count 5.64 M/mm3 (4.6-6.2); White Blood Count 9.3 K/mm3 (4.4-11.0)
[2025-04-01] MEDS: Albuterol 2.5 MG/3 ML VIAL.NEB. INHALATION ×3 (01:49→02:18)
--- NOTE | 2025-04-01 01:55 | RAD_ITS ---
PROCEDURE: RAD/Chest 1 View (Portable)
[2025-04-01 02:02] LABS: Anion Gap 10 (5-15); BUN 18 mg/dL (4-19); BUN/Creat Ratio 19.8 RATIO (10-20); Calcium,Total 9.2 mg/dL (7.6-11.0); Carbon Dioxide 24.3 mmol/L (21.0-32.0); Chloride 104 mmol/L (98-108); Estimated Creatinine Clearance 116.07 ml/min (50-250); Glucose 105 mg/dL (70-99); Potassium 4.2 mmol/L (3.3-5.1)
[2025-04-01 02:22] VITALS: BP 166/100; PULSE 98; RESP 19; O2SAT 96
--- NOTE | 2025-04-01 02:26 | CPS ---
[0138] x3 Albuterol given to pt. in ER
[2025-04-01 02:48] VITALS: BP 152/99; PULSE 95; RESP 21; TEMP 36.6; O2SAT 95
== END 2025-04-01 02:48 | disposition home or self-care (01) ==
PROVIDERS: Emergency Provider Emergency Medicine; Visit Provider Emergency Medicine
DX: J45.901 Unspecified asthma with (acute) exacerbation (principal); F17.210 Nicotine dependence, cigarettes, uncomplicated; F17.290 Nicotine dependence, other tobacco product, uncomplicated
CPT/HCPCS: 71045; 80048; 85025; 94640; 99284; A4216

== ENCOUNTER 2025-05-17 02:39 | Emergency (ER) | payer MEDICAID, SELFPAY ==
[2025-05-17 02:39] VITALS: BP 184/112
[2025-05-17 02:40] VITALS: BP 161/121; PULSE 112; RESP 22; TEMP 36.6; O2SAT 95; BMI 28.8
--- NOTE | 2025-05-17 03:12 | ED.VIS.DYS ---
HPI History of Present Illness Chief Complaint: Asthma Informant: patient Onset/Context/Timing Onset: Today Context: sudden Timing: Continuous Quality: Positive for Wheezing Worsened by: Nothing Relieved by: Nothing Associated Symptoms Negative for cough, rhinorrhea, post nasal drip, ear pain, fever, sore throat, chills, sweats, clear sputum, white sputum, yellow sputum or green sputum Chest Pain: Positive for None Narrative Narrative: Patient presents for shortness of breath that began today. Patient states it began rather suddenly. Patient states he felt wheezing. Patient states nothing makes it worse and nothing makes it better. Patient states he used his albuterol inhaler with minimal relief. Patient denies any chest pain. Patient denies any fevers or chills. Patient denies any cough or rhinorrhea. Patient denies any sore throat or ear pain. Patient is a smoker. Patient has a history of asthma. [facility] Medical History Asthma Smoker Asthma Home Medications ?Medication ?Instructions ?Recorded ?Last Taken ?Type albuterol sulfate 90 mcg/actuation See Rx Instructions .Route 06/11/24 Unknown Rx aerosol inhaler .COMPLEX PRN shortness of breath or wheezing #8.5 grams ipratropium 0.5 mg-albuterol 3 mg 3 ml inhalation Q20M PRN shortness 04/01/25 Unknown Rx (2.5 mg base)/3 mL nebulization of breath or wheezing #90 mL soln Allergy/AdvReac Type Severity Reaction Status Date / Time No Known Allergies Allergy Verified 05/17/25 02:41 Social History housing: apartment Smoking Status: Current every day smoker tobacco type: cigarettes and cigars ROS ROS ED Constitutional Constitutional ED: Denies chills or fever(s) Eyes Eyes: Denies blurry vision or change in vision ENT ENT ED: Denies rhinorrhea or sore throat Cardiovascular Cardiovascular: Denies chest pain or palpitations Respiratory/Chest Respiratory/Chest: Reports dyspnea; Denies cough Gastrointestinal Gastrointestinal: Denies nausea or vomiting Genitourinary Genitourinary ED: Denies dysuria or hematuria Musculoskeletal Musculoskeletal: Denies back pain or neck pain Integumentary Denies abscess or rash Neurologic Neurologic: Denies headache(s) or weakness Allergic/Immunologic Allergic/Immunologic ED: Denies mouth swelling or urticaria EXAM Physical Exam Const Vital Signs: 05/17/25 02:39 05/17/25 02:40 05/17/25 02:40 Temperature 97.9 F Temperature Source Oral Pulse Rate 112 H Respiratory Rate 22 H Respiratory Effort Short of Breath Labored Accessory Muscle Use Respiratory Depth Shallow Respiratory Pattern Tachypnea Blood Pressure 184/112 H 161/121 H Blood Pressure Mean 136 134 Pulse Ox 95 Oxygen Delivery Method Room Air Room Air Positive well nourished and well developed General Appearance ED: well developed and NAD HEENT Reports moist mucous membranes atraumatic Neck supple and no JVD Resp normal respiratory effort Auscultation: wheezes expiratory wheezes and throughout Cardio regular rhythm Rate: tachycardic GI non-tender Palpation: soft Neuro oriented x3, CN's II-XII intact bilaterally and no sensory deficits noted Sensorium / Orientation: alert Speech: speech normal Motor Exam: strength 5/5 throughout Psych mental status grossly normal MDM MDM MDM Narrative Medical decision making narrative: Differential diagnosis includes pneumonia, asthma exacerbation, viral illness. Chest x-ray will be obtained to assess for pneumonia and bronchitis. Treatment and Re-Evaluation :: Patient was ordered a DuoNeb. Patient did not want the DuoNeb aerosol. Patient did not want to wait for his chest x-ray. Patient left prior to completing treatment. Discharge Plan Triage Chief Complaint: Asthma ED Provider: Vikash Valenzuela Dx/Rx/DC Orders Clinical Impression: Asthma, Tobacco abuse Prescriptions: No Action albuterol sulfate 90 mcg/actuation HFA aerosol inhaler See Rx Instructions .ROUTE .COMPLEX PRN (Reason: shortness of breath or wheezing) Qty: 8.5 0RF Rx Instructions: 1-2 puffs every 4-6 hours as needed for shortness of breath or wheezing ipratropium-albuterol 0.5 mg-3 mg(2.5 mg base)/3 mL solution for nebulization 3 ml inhalation Q20M PRN (Reason: shortness of breath or wheezing) Qty: 90 0RF Rx Instructions: for 3 doses Primary Care Provider: Care Physician,No Primary Referrals: Care Physician,No Primary [Primary Care Provider, Medical] Print Language: Argentine Disposition Disposition: Elopement Discharge Date/Time: 05/17/25 03:35
--- NOTE | 2025-05-17 03:54 | ED.RN ---
This RN was notified of the patient eloping out of the department. This RN was informed by RT Ambrose that the patient stated I feel better. notified.
== END 2025-05-17 03:35 | disposition left against medical advice (07) ==
PROVIDERS: Emergency Provider Emergency Medicine; Visit Provider Emergency Medicine
DX: J45.909 Unspecified asthma, uncomplicated (principal); F17.210 Nicotine dependence, cigarettes, uncomplicated; F17.290 Nicotine dependence, other tobacco product, uncomplicated
CPT/HCPCS: 99281